=== PATIENT | male | born 1980 | race Caucasian/White ===

== ENCOUNTER 2025-01-19 19:48 | Emergency (ER) | payer MEDICAID ==
[~2025-01-19] VITALS: Ht 172.7 cm; Wt 75.0 kg
[~2025-01-19 19:48] MED LIST: KETO10TA2 MT; SULF1TAB48 MT; TAMS-54 MT; TRAM50TA3 MT
[2025-01-19 19:58] VITALS: O2SAT 98
[2025-01-19 20:01] VITALS: BP 126/87; PULSE 83; RESP 18; TEMP 37; O2SAT 99
[2025-01-19] MEDS: TETRACAINE 0.5% OPHTH DROPS 4ML LEFTEYE ONE (21:35)
[2025-01-19] MEDS: FLUORESCEIN SODIUM 1MG/STRIP LEFTEYE ONE (21:35)
[2025-01-19] MEDS ORDERED: OCUFLX RIGHTEYE (22:08)
== END 2025-01-19 22:30 | disposition home or self-care (01) ==
LOC: ER 19:48
DX: S05.01XA Injury of conjunctiva and corneal abrasion without foreign body, right eye, initial encounter (principal); H11.31 Conjunctival hemorrhage, right eye; Z79.899 Other long term (current) drug therapy; X58.XXXA Exposure to other specified factors, initial encounter; Y93.89 Activity, other specified; Y92.89 Other specified places as the place of occurrence of the external cause; Y99.8 Other external cause status
CPT/HCPCS: 99283